=== PATIENT | female | born 1980 | race Caucasian/White ===

== ENCOUNTER 2022-05-08 00:27 | Emergency (ER) | payer MEDICAID, SELFPAY ==
[2022-05-08 01:52] LABS: Bilirubin Neg (Negative); Blood, Urine 150 (Negative); Clarity Cloudy (Clear); Glucose, Urine (Dipstick) Normal (Negative); Ketone, Urine Negative (Negative); Leukocyte Negative (Negative); Nitrite Positive (Negative); Protein, Urine (Dipstick) 30 mg/dl (Neg-Trace); Specific Gravity, Urine 1.025 (1.005-1.030); Urobilinogen Normal mg/dL (Less than 2)
[2022-05-08 02:01] LABS: Bacteria/HPF 4+ HPF (None Seen); Mucous/LPF None Seen LPF (<2+); Squamous Epithelial 0-3 HPF (0-3)
[2022-05-08] MEDS ORDERED: Nitrofurantoin Monohyd/M-Cryst 100 MG CAP PO SCH (02:30)
== END 2022-05-08 02:35 | disposition home or self-care (01) ==
LOC: CSHERS 00:27
DX: N39.0 Urinary tract infection, site not specified (principal); E03.9 Hypothyroidism, unspecified
CPT/HCPCS: 81003; 81015; 99283